=== PATIENT | male | born 1995 | race Two or more races ===

== ENCOUNTER 2022-11-04 14:00 | Outpatient (RCR) | payer OTHER, SELFPAY | END 2022-11-06 10:26 | disposition home or self-care (01) | LOC: HO.PT 14:00 | PROVIDERS: PCP Nurse Practitioner; Visit Provider Nurse Practitioner | DX: M25.511 Pain in right shoulder (principal); G89.29 Other chronic pain | CPT/HCPCS: 97110; 97161; 97530 ==